=== PATIENT | male | born 1975 | race Caucasian/White ===

== ENCOUNTER 2018-05-25 01:57 | Emergency (ER) | payer SELFPAY ==
[2018-05-25 02:13] VITALS: TEMP 97.5
[2018-05-25] MEDS ORDERED: SODIUM CHLORIDE 0.9% 1,000 ML IV STA (02:24)
[2018-05-25 02:47] LABS: ALT 33 U/L (21-72); AST 30 U/L (17-59); Alkaline Phosphatase 98 U/L (38-126); Amylase 40 U/L (30-110); Anion Gap 6 mmol/L; Basophils # (A) 0.1 k/uL (0-0.2); Basophils % (A) 2 %; Blood Urea Nitrogen 16 mg/dL (9-20); Calcium 9.4 mg/dL (8.4-10.2); Carbon Dioxide 28 mmol/L (22-30); Chloride 105 mmol/L (98-107); Eosinophils # (A) 0.3 k/uL (0-0.7); Eosinophils % (A) 4 %; Glucose 130 mg/dL (74-99); HCT 48.3 % (39.0-53.0); Lipase 56 U/L (23-300); Lymphocytes # (A) 2.1 k/uL (1.0-4.8); Lymphocytes % (A) 28 %; MCH 27.7 pg (25.0-35.0); MCHC 31.1 g/dL (31.0-37.0); MCV 88.8 fL (80.0-100.0); Mean Platelet Volume 6.3; Monocytes # (A) 0.6 k/uL (0-1.0); Monocytes % (A) 8 %; Neutrophils # (A) 4.2 k/uL (1.3-7.7); Neutrophils % (A) 56 %; Platelet Count 237 k/uL (150-450); Potassium 3.8 mmol/L (3.5-5.1); RBC 5.43 m/uL (4.30-5.90); RDW 12.9 % (11.5-15.5); Sodium 139 mmol/L (137-145); Total Bilirubin 0.3 mg/dL (0.2-1.3); Total Protein 6.6 g/dL (6.3-8.2); WBC 7.5 k/uL (3.8-10.6)
--- NOTE | 2018-05-25 03:01 | XR ---
EXAMINATION TYPE: XR KUB DATE OF EXAM: 05/25/2018 COMPARISON: NONE HISTORY: Abdominal pain TECHNIQUE: 2 views FINDINGS: 2 upright views show no sign of intestinal obstruction or pneumoperitoneum. Fecal pattern i s normal. Lung bases are clear. There are no pathologic calcifications. IMPRESSION: Nonacute abdomen.
[2018-05-25] MEDS ORDERED: MORPHINE SULFATE 4 MG/ML SYRINGE IVP STA (03:03)
[2018-05-25] MEDS ORDERED: KETOROLAC 30 MG/ML 1 ML VIAL IVP STA (03:03)
[2018-05-25] MEDS ORDERED: ONDANSETRON 4 MG/2 ML VIAL IVP STA (03:03)
[2018-05-25] MEDS ORDERED: PANTOPRAZOLE 40 MG/10 ML VIAL IVP STA (03:29)
--- NOTE | 2018-05-25 04:15 | ED ---
Abdominal Pain HPI - General Source: patient, RN notes reviewed, old records reviewed Mode of arrival: ambulatory Limitations: no limitations <Lora Naranjo - Last Filed: 05/25/18 04:14> <Romel Wang - Last Filed: 05/25/18 06:18> - General Chief Complaint: Abdominal Pain Stated Complaint: abd pain Time Seen by Provider: 05/25/18 02:24 - History of Present Illness Initial Comments: Patient is a 42-year-old male present today with sudden onset of right lower quadrant abdominal pain. He reports it occurred 2 hours ago and woke him up. He reports he has nausea. He states he isn't ballotable vomiting episodes. No diarrhea. Denies any fevers or chills. No history of sick contacts. No surgical or medical history. (Lora Naranjo) - Related Data Allergies Allergy/AdvReac Type Severity Reaction Status Date / Time bacitracin Allergy Rash/Hives Verified 05/25/18 02:13 [From Neosporin ([id number])] neomycin Allergy Rash/Hives Verified 05/25/18 02:13 [From Neosporin ([id number])] polymyxin B Allergy Rash/Hives Verified 05/25/18 02:13 [From Neosporin ([id number])] Review of Systems ROS Other: All systems not noted in ROS Statement are negative. <Noemí Naranjoily - Last Filed: 05/25/18 04:14> ROS Other: All systems not noted in ROS Statement are negative. <Romel Wang - Last Filed: 05/25/18 06:18> ROS Statement: Those systems with pertinent positive or pertinent negative responses have been documented in the HPI. Past Medical History Past Medical History: Asthma, Hyperlipidemia History of Any Multi-Drug Resistant Organisms: None Reported Past Surgical History: Hernia Repair Past Psychological History: No Psychological Hx Reported Smoking Status: Current every day smoker Past Alcohol Use History: None Reported Past Drug Use History: None Reported <Lora Naranjo - Last Filed: 05/25/18 04:14> General Exam Limitations: no limitations Head exam: Present: atraumatic, normocephalic, normal inspection Eye exam: Present: normal appearance, PERRL, EOMI. Absent: scleral icterus, conjunctival injection, periorbital swelling ENT exam: Present: normal exam, mucous membranes moist Neck exam: Present: normal inspection. Absent: tenderness, meningismus, lymphadenopathy Respiratory exam: Present: normal lung sounds bilaterally. Absent: respiratory distress, wheezes, rales, rhonchi, stridor Cardiovascular Exam: Present: regular rate, normal rhythm, normal heart sounds. Absent: systolic murmur, diastolic murmur, rubs, gallop, clicks GI/Abdominal exam: Present: soft, tenderness (Right upper quadrant tenderness radiating towards back.), normal bowel sounds. Absent: distended, guarding, rebound, rigid Extremities exam: Present: normal inspection, full ROM, normal capillary refill. Absent: tenderness, pedal edema, joint swelling, calf tenderness Back exam: Present: normal inspection Neurological exam: Present: alert, oriented X3, CN II-XII intact Psychiatric exam: Present: normal affect, normal mood <Lora Naranjo - Last Filed: 05/25/18 04:14> <Romel Wang - Last Filed: 05/25/18 06:18> - General Exam Comments Initial Comments: 42-year-old male. Alert and oriented. No significant distress. (Lora Naranjo) Vital Signs 05/25/18 05/25/18 02:10 05:47 Temperature 97.5 F L Pulse Rate 50 L 60 Respiratory 19 16 Rate Blood Pressure 147/74 131/70 O2 Sat by Pulse 100 98 Oximetry Medical Decision Making - Lab Data Result diagrams: 05/25/18 02:24 05/25/18 02:24 <Lora Naranjo - Last Filed: 05/25/18 04:14> - Lab Data Result diagrams: 05/25/18 02:24 05/25/18 02:24 <Romel Wang - Last Filed: 05/25/18 06:18> - Medical Decision Making Patient is a 42-year-old male presents emergency Department chief complaint of sudden onset of right-sided abdominal pain. No previous medical history. He does feel nauseated. Patient is given IV fluids and pain medication. Scratching the right side. He does state the pain will radiate towards his back. Initial lab work at this time is reviewed and unremarkable. Currently pending urinalysis. Patient's case discussed with Dr. Foster will be finishing the disposition. (Lora Naranjo) I saw this patient in conjunction with the physician help desk assistant. I performed independent history and physical exam. Agree with case management. I reevaluated the patient after his urinalysis had returned. The patient states that the symptoms have resolved. When I examined the patient's abdomen there is no tenderness at all. Discussed possibilities for the etiology of the abdominal pain. Discussed the appropriate follow-up care as well as return parameters. (Romel Wang) - Lab Data Lab Results 05/25/18 05/25/18 05/25/18 Range/Units 02:24 02:24 05:37 WBC 7.5 (3.8-10.6) k/uL RBC 5.43 (4.30-5.90) m/uL Hgb 15.0 (13.0-17.5) gm/dL Hct 48.3 (39.0-53.0) % MCV 88.8 (80.0-100.0) fL MCH 27.7 (25.0-35.0) pg MCHC 31.1 (31.0-37.0) g/dL RDW 12.9 (11.5-15.5) % Plt Count 237 (150-450) k/uL Neutrophils % 56 % Lymphocytes % 28 % Monocytes % 8 % Eosinophils % 4 % Basophils % 2 % Neutrophils # 4.2 (1.3-7.7) k/uL Lymphocytes # 2.1 (1.0-4.8) k/uL Monocytes # 0.6 (0-1.0) k/uL Eosinophils # 0.3 (0-0.7) k/uL Basophils # 0.1 (0-0.2) k/uL Sodium 139 (137-145) mmol/L Potassium 3.8 (3.5-5.1) mmol/L Chloride 105 (98-107) mmol/L Carbon Dioxide 28 (22-30) mmol/L Anion Gap 6 mmol/L BUN 16 (9-20) mg/dL Creatinine 1.11 (0.66-1.25) mg/dL Est GFR (CKD-EPI)AfAm >90 (>60 ml/min/1.73 sqM) Est GFR (CKD-EPI)NonAf 81 (>60 ml/min/1.73 sqM) Glucose 130 H (74-99) mg/dL Calcium 9.4 (8.4-10.2) mg/dL Total Bilirubin 0.3 (0.2-1.3) mg/dL AST 30 (17-59) U/L ALT 33 (21-72) U/L Alkaline Phosphatase 98 (38-126) U/L Total Protein 6.6 (6.3-8.2) g/dL Albumin 4.0 (3.5-5.0) g/dL Amylase 40 (30-110) U/L Lipase 56 (23-300) U/L Urine Color Yellow Urine Appearance Clear (Clear) Urine pH 5.5 (5.0-8.0) Ur Specific [place] 1.013 (1.001-1.035) Urine Protein Negative (Negative) Urine Glucose (UA) Negative (Negative) Urine Ketones Negative (Negative) Urine Blood Negative (Negative) Urine Nitrite Negative (Negative) Urine Bilirubin Negative (Negative) Urine Urobilinogen <2.0 (<2.0) mg/dL Ur Leukocyte Esterase Negative (Negative) Disposition <Lora Naranjo - Last Filed: 05/25/18 04:14> Is patient prescribed a controlled substance at d/c from ED?: No <Romel Wang - Last Filed: 05/25/18 06:18> Clinical Impression: Abdominal pain Disposition: HOME SELF-CARE Condition: Good Instructions: Abdominal Pain (ED) Referrals: Dionne Mitchell MD [Primary Care Provider] - 1-2 days
[2018-05-25 05:47] VITALS: BP 131/70; PULSE 60; RESP 16
[2018-05-25 05:58] LABS: Appearance,Urine Clear (Clear); Bilirubin,Urine Negative (Negative); Blood,Urine Negative (Negative); Color,Urine Yellow; Glucose,Urine (UA) Negative (Negative); Ketones,Urine Negative (Negative); Leukocyte Esterase,Urine Negative (Negative); Nitrite,Urine Negative (Negative); PH, Urine 5.5 (5.0-8.0); Protein,Urine Negative (Negative); Specific Gravity,Urine 1.013 (1.001-1.035); Urobilinogen,Urine <2.0 mg/dL (<2.0)
== END 2018-05-25 06:28 | disposition home or self-care (01) ==
LOC: EC 01:57
DX: R10.31 Right lower quadrant pain (principal); R11.0 Nausea; F17.200 Nicotine dependence, unspecified, uncomplicated; Z88.1 Allergy status to other antibiotic agents
CPT/HCPCS: 36415; 80053; 82150; 83690; 85025; 81003; 87086; 74018; 99284; 96374; 96375 ×3; 96361; J2270; J2405; J1885; C9113

== ENCOUNTER 2018-09-02 08:15 | Inpatient (IN) | payer OTHER ==
[2018-09-02] MEDS ORDERED: ONDANSETRON 4 MG/2 ML VIAL IVP STA (08:29)
[2018-09-02] MEDS ORDERED: KETOROLAC 30 MG/ML 1 ML VIAL IVP STA (08:29)
[2018-09-02] MEDS ORDERED: SODIUM CHLORIDE 0.9% 1,000 ML IV STA (08:29)
--- NOTE | 2018-09-02 08:38 | ED ---
Abdominal Pain HPI - General Chief Complaint: Abdominal Pain Stated Complaint: Abd Pain Time Seen by Provider: 09/02/18 08:22 Source: patient, RN notes reviewed Mode of arrival: ambulatory Limitations: no limitations - History of Present Illness Initial Comments: 42-year-old male presents emergency Department with chief complaint of abdominal pain. Patient states started around 1 AM. Patient states that his right flank and radiates around. Patient does admit to associated nausea vomiting no diarrhea no constipation no fever no chills. Patient states he had similar symptoms a few months back and which she was seen in emergency department findings. Patient denies any chest pain or shortness breath no prior abdominal surgeries. He has no hematuria no dysuria. He states that makes the pain feel better or worse. - Related Data Home Medications Medication Instructions Recorded Confirmed Acetaminophen Tab [Tylenol Tab] 1,000 mg PO DAILY 09/02/18 09/02/18 Allergies Allergy/AdvReac Type Severity Reaction Status Date / Time bacitracin Allergy Rash/Hives Verified 09/02/18 08:47 [From Neosporin ([id number])] neomycin Allergy Rash/Hives Verified 09/02/18 08:47 [From Neosporin ([id number])] polymyxin B Allergy Rash/Hives Verified 09/02/18 08:47 [From Neosporin ([id number])] Review of Systems ROS Statement: Those systems with pertinent positive or pertinent negative responses have been documented in the HPI. ROS Other: All systems not noted in ROS Statement are negative. Past Medical History Past Medical History: Asthma, Hyperlipidemia History of Any Multi-Drug Resistant Organisms: None Reported Past Surgical History: Hernia Repair Past Psychological History: No Psychological Hx Reported Smoking Status: Current every day smoker Past Alcohol Use History: None Reported Past Drug Use History: None Reported General Exam Limitations: no limitations General appearance: alert, in no apparent distress Head exam: Present: atraumatic, normocephalic, normal inspection Eye exam: Present: normal appearance, PERRL, EOMI. Absent: scleral icterus, conjunctival injection, periorbital swelling ENT exam: Present: normal exam, normal oropharynx, mucous membranes moist Neck exam: Present: normal inspection, full ROM. Absent: tenderness, meningismus, lymphadenopathy Respiratory exam: Present: normal lung sounds bilaterally. Absent: respiratory distress, wheezes, rales, rhonchi, stridor Cardiovascular Exam: Present: regular rate, normal rhythm, normal heart sounds. Absent: systolic murmur, diastolic murmur, rubs, gallop, clicks GI/Abdominal exam: Present: soft, tenderness (Moderate right upper quadrant tenderness), normal bowel sounds. Absent: distended, guarding, rebound, rigid Back exam: Absent: CVA tenderness (R), CVA tenderness (L) Skin exam: Present: warm, dry, intact, normal color. Absent: rash Course Vital Signs 09/02/18 09/02/18 08:17 09:55 Temperature 98 F Pulse Rate 101 H 58 L Respiratory 22 16 Rate Blood Pressure 146/98 126/81 O2 Sat by Pulse 99 100 Oximetry Medical Decision Making - Lab Data Result diagrams: 09/02/18 08:42 09/02/18 08:42 Lab Results 09/02/18 09/02/18 09/02/18 Range/Units 08:42 08:42 08:42 WBC 9.5 (3.8-10.6) k/uL RBC 5.07 (4.30-5.90) m/uL Hgb 14.3 (13.0-17.5) gm/dL Hct 43.5 (39.0-53.0) % MCV 85.8 (80.0-100.0) fL MCH 28.3 (25.0-35.0) pg MCHC 33.0 (31.0-37.0) g/dL RDW 12.9 (11.5-15.5) % Plt Count 222 (150-450) k/uL Neutrophils % 80 % Lymphocytes % 12 % Monocytes % 5 % Eosinophils % 1 % Basophils % 1 % Neutrophils # 7.6 (1.3-7.7) k/uL Lymphocytes # 1.2 (1.0-4.8) k/uL Monocytes # 0.4 (0-1.0) k/uL Eosinophils # 0.1 (0-0.7) k/uL Basophils # 0.1 (0-0.2) k/uL PT 10.3 (9.0-12.0) sec INR 1.0 (<1.2) APTT 26.5 (22.0-30.0) sec Sodium 139 (137-145) mmol/L Potassium 4.2 (3.5-5.1) mmol/L Chloride 107 (98-107) mmol/L Carbon Dioxide 25 (22-30) mmol/L Anion Gap 7 mmol/L BUN 22 H (9-20) mg/dL Creatinine 0.80 (0.66-1.25) mg/dL Est GFR (CKD-EPI)AfAm >90 (>60 ml/min/1.73 sqM) Est GFR (CKD-EPI)NonAf >90 (>60 ml/min/1.73 sqM) Glucose 117 H (74-99) mg/dL Calcium 9.3 (8.4-10.2) mg/dL Total Bilirubin 0.5 (0.2-1.3) mg/dL AST 41 (17-59) U/L ALT 37 (21-72) U/L Alkaline Phosphatase 93 (38-126) U/L Total Protein 6.3 (6.3-8.2) g/dL Albumin 3.7 (3.5-5.0) g/dL Amylase 41 (30-110) U/L Lipase 65 (23-300) U/L Disposition Clinical Impression: Cholecystitis, acute with cholelithiasis Disposition: ADMITTED IP TO THIS [facility] Condition: Stable Referrals: None,Stated [Primary Care Provider] - 1-2 days
[2018-09-02 09:01] LABS: Basophils # (A) 0.1 k/uL (0-0.2); Basophils % (A) 1 %; Eosinophils # (A) 0.1 k/uL (0-0.7); Eosinophils % (A) 1 %; HCT 43.5 % (39.0-53.0); HGB 14.3 gm/dL (13.0-17.5); Lymphocytes # (A) 1.2 k/uL (1.0-4.8); Lymphocytes % (A) 12 %; MCH 28.3 pg (25.0-35.0); MCV 85.8 fL (80.0-100.0); Mean Platelet Volume 6.4; Monocytes # (A) 0.4 k/uL (0-1.0); Monocytes % (A) 5 %; Neutrophils # (A) 7.6 k/uL (1.3-7.7); Neutrophils % (A) 80 %; Platelet Count 222 k/uL (150-450); RBC 5.07 m/uL (4.30-5.90); RDW 12.9 % (11.5-15.5); WBC 9.5 k/uL (3.8-10.6)
[2018-09-02 09:09] LABS: Albumin 3.7 g/dL (3.5-5.0); Amylase 41 U/L (30-110); Anion Gap 7 mmol/L; Carbon Dioxide 25 mmol/L (22-30); Chloride 107 mmol/L (98-107); Glucose 117 mg/dL (74-99); Potassium 4.2 mmol/L (3.5-5.1); Sodium 139 mmol/L (137-145); Total Protein 6.3 g/dL (6.3-8.2)
[2018-09-02 09:10] LABS: ALT 37 U/L (21-72); AST 41 U/L (17-59); Alkaline Phosphatase 93 U/L (38-126); Blood Urea Nitrogen 22 mg/dL (9-20); Calcium 9.3 mg/dL (8.4-10.2); Lipase 65 U/L (23-300); Total Bilirubin 0.5 mg/dL (0.2-1.3)
[2018-09-02 09:11] LABS: Partial Thromboplastin Time 26.5 sec (22.0-30.0); Prothrombin Time 10.3 sec (9.0-12.0)
[2018-09-02] MEDS ORDERED: SODIUM CHLORIDE 0.9% 1,000 ML IV ONE (09:37)
[2018-09-02] MEDS ORDERED: HYDROmorphone 0.5 MG/0.5 ML SYRINGE IVP STA (09:38)
--- NOTE | 2018-09-02 09:43 | US ---
EXAMINATION TYPE: US gallbladder DATE OF EXAM: 09/02/2018 COMPARISON: NONE CLINICAL HISTORY: Pain. rt flank pain that radiates to mid abd EXAM MEASUREMENTS: Liver Length: 18.8 cm Gallbladder Wall: 0.3 cm CBD: 0.6 cm Right Kidney: 10.8 x 5.1 x 4.9 cm Pancreas: wnl Liver: wnl Gallbladder: 1.7cm neck stone seen that was not mobile when rolled LLD. Evidence for sonographic Li's sign: YES CBD: wnl Right Kidney: wnl IMPRESSION: Large calculus at the gallbladder neck that appears impacted as it is nonmobile. There is no current common bile duct dilatation although the common bile duct is upper limits of normal. Give n the positive sonographic Li's sign, intermittent obstruction by the gallbladder neck gallstone or early developing acute cholelithiasis should be considered and correlated with laboratory values.
[2018-09-02] MEDS ORDERED: PIPERACILLIN-TAZOBACTAM 3.375 GM in SODIUM CHLORIDE 0.9% 100 ML IVPB STA (09:59)
[2018-09-02] MEDS ORDERED: HYDROmorphone 1 MG/ML 1 ML SYRINGE IVP PRN (10:00)
[2018-09-02] MEDS ORDERED: NALOXONE 0.4 MG/ML 1 ML VIAL IV PRN (10:00)
[2018-09-02] MEDS ORDERED: ONDANSETRON 4 MG/2 ML VIAL IVP PRN (10:00)
[2018-09-02 10:06] LABS: Appearance,Urine Clear (Clear); Bilirubin,Urine Negative (Negative); Blood,Urine Negative (Negative); Color,Urine Yellow; Glucose,Urine (UA) Negative (Negative); Ketones,Urine Negative (Negative); Leukocyte Esterase,Urine Negative (Negative); Nitrite,Urine Negative (Negative); Protein,Urine Negative (Negative); Specific Gravity,Urine 1.013 (1.001-1.035); Urobilinogen,Urine <2.0 mg/dL (<2.0)
[2018-09-02] MEDS: SODIUM CHLORIDE 0.9% 1,000 ML IV SCH (10:19)
--- NOTE | 2018-09-02 12:56 | P.GSHP ---
History of Present Illness H&P Date: 09/02/18 42-year-old male presented to the emergency department with complaints of abdominal pain in the epigastrium and right upper quadrant. He states the pain started suddenly in the middle of the night and nothing that he tried help to resolve it. He tried drinking water and he tried taking a warm bath. He states that he had a similar episode a few months ago. He admitted to nausea and vomiting episodes. Currently, with pain medication he is more comfortable. He denies any change in bowel function. In the emergency department, workup was completed with an ultrasound that did show a large immobile stone likely causing an early cholecystitis. The patient denies any fevers, chills, chest pain or shortness of breath. He has no additional complaints at this time. - Review of Systems All systems: negative Past Medical History Past Medical History: Asthma, Hyperlipidemia Additional Past Medical History / Comment(s): L4 herniated disc, chronic low back pain. History of Any Multi-Drug Resistant Organisms: None Reported Past Surgical History: Hernia Repair Additional Past Surgical History / Comment(s): Abdominal hernia repair. Past Anesthesia/Blood Transfusion Reactions: No Reported Reaction Smoking Status: Current every day smoker - Past Family History Father Family Medical History: COPD Additional Family Medical History / Comment(s): Father is Mother Additional Family Medical History / Comment(s): Mother is -pt states "she just gave up on life." Medications and Allergies Home Medications Medication Instructions Recorded Confirmed Type Acetaminophen Tab [Tylenol Tab] 1,000 mg PO DAILY 09/02/18 09/02/18 History Allergies Allergy/AdvReac Type Severity Reaction Status Date / Time bacitracin Allergy Rash/Hives Verified 09/02/18 08:47 [From Neosporin ([id number])] neomycin Allergy Rash/Hives Verified 09/02/18 08:47 [From Neosporin ([id number])] polymyxin B Allergy Rash/Hives Verified 09/02/18 08:47 [From Neosporin ([id number])] Surgical - Exam Osteopathic Statement: *. No significant issues noted on an osteopathic structural exam other than those noted in the History and Physical/Consult. Vital Signs Temp Pulse Resp BP Pulse Ox 98 F 101 H 22 146/98 99 09/02/18 08:17 09/02/18 08:17 09/02/18 08:17 09/02/18 08:17 09/02/18 08:17 - General well nourished, no distress - Eyes PERRL, normal ocular movement - ENT no hearing loss - Neck no masses, no bruits, trachea midline - Respiratory No difficulty with respiration - Abdomen Soft, tender to palpation in the epigastrium and right upper quadrant, nondistended, no rebound, no guarding - Psychiatric oriented to time, oriented to person, oriented to place Results - Labs 09/02/18 08:42 09/02/18 08:42 Abnormal Lab Results - Last 24 Hours (Table) 09/02/18 Range/Units 08:42 BUN 22 H (9-20) mg/dL Glucose 117 H (74-99) mg/dL Diabetes panel 09/02/18 Range/Units 08:42 Sodium 139 (137-145) mmol/L Potassium 4.2 (3.5-5.1) mmol/L Chloride 107 (98-107) mmol/L Carbon Dioxide 25 (22-30) mmol/L BUN 22 H (9-20) mg/dL Creatinine 0.80 (0.66-1.25) mg/dL Glucose 117 H (74-99) mg/dL Calcium 9.3 (8.4-10.2) mg/dL AST 41 (17-59) U/L ALT 37 (21-72) U/L Alkaline Phosphatase 93 (38-126) U/L Total Protein 6.3 (6.3-8.2) g/dL Albumin 3.7 (3.5-5.0) g/dL Calcium panel 09/02/18 Range/Units 08:42 Calcium 9.3 (8.4-10.2) mg/dL Albumin 3.7 (3.5-5.0) g/dL Pituitary panel 09/02/18 Range/Units 08:42 Sodium 139 (137-145) mmol/L Potassium 4.2 (3.5-5.1) mmol/L Chloride 107 (98-107) mmol/L Carbon Dioxide 25 (22-30) mmol/L BUN 22 H (9-20) mg/dL Creatinine 0.80 (0.66-1.25) mg/dL Glucose 117 H (74-99) mg/dL Calcium 9.3 (8.4-10.2) mg/dL Adrenal panel 09/02/18 Range/Units 08:42 Sodium 139 (137-145) mmol/L Potassium 4.2 (3.5-5.1) mmol/L Chloride 107 (98-107) mmol/L Carbon Dioxide 25 (22-30) mmol/L BUN 22 H (9-20) mg/dL Creatinine 0.80 (0.66-1.25) mg/dL Glucose 117 H (74-99) mg/dL Calcium 9.3 (8.4-10.2) mg/dL Total Bilirubin 0.5 (0.2-1.3) mg/dL AST 41 (17-59) U/L ALT 37 (21-72) U/L Alkaline Phosphatase 93 (38-126) U/L Total Protein 6.3 (6.3-8.2) g/dL Albumin 3.7 (3.5-5.0) g/dL - Imaging US - abdomen: report reviewed, image reviewed (Cholelithiasis, and mobile) Assessment and Plan (1) Cholecystitis, acute with cholelithiasis Narrative/Plan: 42-year-old male with acute cholecystitis with cholelithiasis - Keep the patient nothing by mouth - Continue antibiotics - Plan for laparoscopic cholecystectomy Current Visit: Yes Status: Acute Code(s): K80.00 - CALCULUS OF GALLBLADDER W ACUTE CHOLECYST W/O OBSTRUCTION SNOMED Code(s): 06460664
[2018-09-02] MEDS: HEPARIN SODIUM,PORCINE 5,000 UNIT/ML 1 ML VIAL SQ SCH (16:13)
[2018-09-02] MEDS: HYDROmorphone 0.5 MG/0.5 ML SYRINGE IVP PRN (19:39)
[2018-09-03] MEDS: HEPARIN SODIUM,PORCINE 5,000 UNIT/ML 1 ML VIAL SQ SCH ×2 (00:33→09:24)
[2018-09-03] MEDS: SODIUM CHLORIDE 0.9% 1,000 ML IV SCH ×3 (01:00→09:24)
[2018-09-03] MEDS: HYDROmorphone 0.5 MG/0.5 ML SYRINGE IVP PRN (06:09)
[2018-09-03] MEDS ORDERED: GLYCOPYRROLATE 0.2 MG/ML 2 ML VIAL ONE (07:03)
[2018-09-03] MEDS ORDERED: LIDOCAINE 1% INJ 10MG/ML (20 ML MDV) ONE (07:03)
[2018-09-03] MEDS ORDERED: fentaNYL (PF) 50 MCG/ML 2 ML AMP ONE (07:03)
[2018-09-03] MEDS ORDERED: NEOSTIGMINE 1 MG/ML 10 ML VIAL ONE (07:03)
[2018-09-03] MEDS ORDERED: ONDANSETRON 4 MG/2 ML VIAL ONE (07:03)
[2018-09-03] MEDS ORDERED: PROPOFOL 10 MG/ML 20 ML VIAL IV ONE (07:03)
[2018-09-03] MEDS ORDERED: SUCCINYLCHOLINE CHLORIDE 100 MG/5 ML SYR IV ONE (07:03)
[2018-09-03] MEDS ORDERED: MIDAZOLAM 2 MG/2 ML VIAL ONE (07:03)
[2018-09-03] MEDS ORDERED: ROCURONIUM BROMIDE 10 MG/ML 10 ML VIAL IV ONE (07:03)
[2018-09-03] MEDS ORDERED: IV FLUID CONTINUATION 800 ML IV ONE ×2 (07:06)
[2018-09-03] MEDS ORDERED: SODIUM CHLORIDE 0.9% 50 ML with ceFAZolin 2,000 MG IV ONE ×2 (07:15)
[2018-09-03] MEDS ORDERED: BUPIVACAIN-EPI 0.25%-1:200,000 30 ML VIAL SQ ONE ×2 (07:32→07:57)
--- NOTE | 2018-09-03 08:03 | P.OP ---
Date of Procedure: 09/03/18 Preoperative Diagnosis: Cholecystitis Postoperative Diagnosis: Cholecystitis, cholelithiasis Procedure(s) Performed: Laparoscopic cholecystectomy Anesthesia: RADHA Surgeon: Benoit Howard Pathology: other (Gallbladder and contents) Condition: stable Disposition: floor Indications for Procedure: 42-year-old male presented to the emergency department with complaints of upper abdominal pain, specific to the epigastrium and right upper quadrant. On workup , he was found to have an impacted gallstone. This was very suspicious for cholecystitis. Secondary to this, plan for laparoscopic cholecystectomy. The patient was explained the risks, benefits and alternatives to the procedure and did provide consent prior to attending the operating suite. Operative Findings: Distended gallbladder with cholelithiasis and surrounding edema Description of Procedure: The patient was brought into the operating suite and placed in supine position on the operating table. Sedation was provided by anesthesia and the patient underwent endotracheal intubation. The patient was then prepped and draped in regular sterile fashion. An umbilical incision was made dissection was carried to the fascia the fascia was incised and a 12 mm port was placed. Pneumoperitoneum was then achieved. The patient was then put in an upright and left leaning position. 3 additional 5 mm ports were placed. One was placed in the subxiphoid region. 2 were placed in the right upper quadrant. The Gallbladder was then grasped and retracted. Dissection was carried to obtain the critical view. Both the cystic duct and cystic artery were skeletonized. 2 clips were placed proximally on the cystic duct, one was placed distally and the cystic duct was ligated. 2 clips were then placed proximally on the cystic artery and one was placed distally and the cystic artery was ligated. Order cautery was then used to dissect the gallbladder from the gallbladder fossa on the liver bed. The gallbladder was then placed in an Endo Catch bag and removed from the abdomen. Irrigation was then used in the right upper quadrant. Hemostasis was noted to be maintained. Pneumoperitoneum was then released and all trochars were removed from the abdomen. The umbilical incision was closed with 0 Vicryl interrupted fascial sutures. All skin incisions were then closed with 4-0 Vicryl subcuticular suture. The patient was then awakened in the operating suite and taken to postanesthesia care unit in stable condition.
[2018-09-03] MEDS ORDERED: HYDROcodone/APAP 5-325MG 1 EACH TAB PO PRN (08:07)
[2018-09-03] MEDS: MEPERIDINE 50 MG/ML SYRINGE IVP ONE ×2 (08:10→08:22)
[2018-09-03 09:03] VITALS: BMI 24.4
[2018-09-03 11:41] VITALS: BP 132/86; PULSE 49; RESP 14; TEMP 98
--- NOTE | 2018-09-03 12:59 | P.DS ---
Providers Date of admission: 09/02/18 10:06 Attending physician: Benoit Howard DO Primary care physician: Stated None - Discharge Diagnosis(es) (1) Cholecystitis, acute with cholelithiasis Current Visit: Yes Status: Acute Hospital Course: 42yo M presented with abdominal pain and cholecystitis. He did have a lap cholecystectomy performed. He did well in recovery and states his pain is well controlled. He tolerated a diet and requested discharge. He is surgically stable for discharge. Procedures: Lap Cholecystectomy Patient Condition at Discharge: Fair Plan - Discharge Summary Discharge Rx Participant: No New Discharge Prescriptions: New HYDROcodone/APAP 5-325MG [Cache 5-325] 1 tab PO Q6HR PRN 3 Days #12 tab PRN Reason: Pain Discontinued Acetaminophen Tab [Tylenol Tab] 1,000 mg PO DAILY Discharge Medication List HYDROcodone/APAP 5-325MG [Cache 5-325] 1 tab PO Q6HR PRN 3 Days #12 tab [Rx] Follow up Appointment(s)/Referral(s): Benoit Howard DO [Doctor of Osteopathic Medicine] - 2 Weeks Patient Instructions/Handouts: *Surgery [facility] - Laparoscopic Cholecystectomy Discharge Instructions, Cholecystitis (GEN), Gallstones (DC) Activity/Diet/Wound Care/Special Instructions: Ok to shower Stay on a low fat diet Increase activity daily No lifting greater than 5 lbs until seen by surgeon Take stool softener if taking narcotic pain medication Discharge Disposition: HOME SELF-CARE
== END 2018-09-03 12:05 | disposition home or self-care (01) | DRG 419 ==
LOC: EC 08:15 → 4SSUR 10:06
PROVIDERS: ADMIT Surgery; ATTEND Surgery
PROC: 0FT44ZZ Resection of Gallbladder, Percutaneous Endoscopic Approach (ICD-10-PCS; principal; 2018-09-03 07:00)
DX: K80.00 Calculus of gallbladder with acute cholecystitis without obstruction (principal); E78.5 Hyperlipidemia, unspecified; F17.210 Nicotine dependence, cigarettes, uncomplicated; J45.909 Unspecified asthma, uncomplicated; G89.29 Other chronic pain; M51.26 Other intervertebral disc displacement, lumbar region; Z88.1 Allergy status to other antibiotic agents; Z82.5 Family history of asthma and other chronic lower respiratory diseases
CPT/HCPCS: 36415; 76705; 80053; 81003; 82150; 83690; 85025; 85610; 85730; 88304; 96361; 96374; 96375; 99285